=== PATIENT | male | born 1965 | race Caucasian/White ===

== ENCOUNTER 2016-09-02 07:00 | Day surgery (SDC) | payer OTHER ==
[~2016-09-02 07:00] MED LIST: Dextrose 5%-0.45% NaCl 1,000 ML IV SCH; Midazolam 1 MG/ML 2 ML SDV ONE; Sodium Chloride 0.9% 10 ML Syringe FLUSH PRN; fentaNYL 100 MCG/2 ML SDV ONE
[2016-09-02] MEDS ORDERED: fentaNYL 100 MCG/2 ML SDV IV ONE ×3 (07:54→10:05)
[2016-09-02] MEDS ORDERED: Midazolam 1 MG/ML 2 ML SDV IV ONE ×3 (07:55→10:05)
[2016-09-02 09:44] VITALS: BP 104/77
--- NOTE | 2016-09-02 13:28 | OR ---
DATE: 09/02/2016 PROCEDURES: 1. Esophagogastroduodenoscopy. 2. NBI. 3. Multiple pinch biopsies and brush biopsy. INSTRUMENT USED: GIF-H180 Olympus video panendoscope. PREMEDICATIONS: No oral topical anesthesia used. Fentanyl 100 mcg intravenous, Versed 2 mg intravenous. The procedure was done under pulse oximetry, BP recording, and cardiac surgeon. INDICATION: The patient with persistent abdominal pain and diarrhea unexplained and not responsive to medical measures. Esophagogastroduodenoscopy is performed for detection of any active erosive lesions, Ballard esophagus and/or malignancy also under consideration, H. pylori status to be determined, biopsies to be taken for celiac disease if indicated, endoscopic hemostasis therapy if needed. DESCRIPTION OF PROCEDURE: The scope was passed with ease. Adequate visualization of the esophagus was made from proximal to distal areas. No upper esophageal lesions identified. No distal esophageal stricture. No uphill or downhill esophageal varices. No Glenys-Guillory tear. No evidence of erosive esophagitis by Winston criteria. No esophageal polyp or tumor mass identified. Z-line was seen at around 40 cm distal to the oral verge, configuration consistent with grade 1 by ZAP classification. No proximal gastric varices noted. Gastric fundus examination by retroflexion showed no polypoid lesions. In the distal gastric body, multiple benign-appearing, 1 cm sized superficial ulcers were noted with blackish exudate around, photographs were taken, NBI views were obtained, multiple pinch biopsies, 6 in number were taken from different areas and sent for histopathology, brush biopsy was taken for cytology. No gastric vascular ectasia, polyp, or malignant mass identified. Duodenal bulb showed no ulcer. Visualized second part of the duodenum was unremarkable. Multiple pinch biopsies, 4 in number were taken from different areas of the second part of the duodenum, tissues were also obtained from the duodenal bulb from and 9 and 12 o'clock positions and sent for any histopathologic evidence of celiac disease. Multiple pinch biopsies were taken from the gastric antrum and proximal body and sent for PyloriTek test for H. pylori and histopathology. No bleeding was noted from any of the visualized areas at the completion of examination. IMPRESSION: Multiple gastric body ulcers. The patient tolerated the procedure well. [facility] /[id number]
== END 2016-09-05 10:20 | disposition home or self-care (01) ==
LOC: DL.ENDO 07:00
PROVIDERS: ATTEND Internal Medicine Gastroenterology
DX: K29.80 Duodenitis without bleeding (principal); K29.01 Acute gastritis with bleeding; K25.0 Acute gastric ulcer with hemorrhage; Z98.890 Other specified postprocedural states
CPT/HCPCS: 43239; 87077; J2250; J3010; J7042

== ENCOUNTER 2016-12-20 05:55 | Day surgery (SDC) | payer OTHER ==
[2016-12-20] MEDS ORDERED: Midazolam 1 MG/ML 2 ML SDV ONE (06:21)
[2016-12-20] MEDS ORDERED: fentaNYL 100 MCG/2 ML SDV ONE (06:22)
[2016-12-20] MEDS ORDERED: fentaNYL 100 MCG/2 ML SDV IV ONE ×2 (07:01→07:13)
[2016-12-20] MEDS ORDERED: Midazolam 1 MG/ML 2 ML SDV IV ONE ×3 (07:02→07:13)
[2016-12-20] MEDS ORDERED: Sodium Chloride 0.9% 10 ML Syringe FLUSH PRN (07:23)
[2016-12-20] MEDS ORDERED: Dextrose 5%-0.45% NaCl 1,000 ML IV SCH (07:30)
--- NOTE | 2016-12-20 09:17 | OR ---
DATE: 12/20/2016 PROCEDURE: Esophagogastroduodenoscopy, NBI, and multiple pinch biopsies. INSTRUMENT USED: GIF-H180 Olympus video panendoscope. PREMEDICATIONS: No oral topical anesthesia used. Fentanyl 100 mcg intravenous, Versed 3 mg intravenous. The procedure was done under pulse oximetry, BP recording, and electronic device monitor. INDICATION: The patient with abdominal pain and chronic diarrhea, previous gastric ulcers, treated. Esophagogastroduodenoscopy is performed for verification of total healing of gastric ulcers and rule out malignancy. Had a normal duodenal histopathology, repeat duodenal biopsies to be obtained for any evidence of celiac disease, endoscopic hemostasis therapy if needed. DESCRIPTION OF PROCEDURE: The scope was passed with ease. Adequate visualization of the esophagus was made from proximal to distal areas. No upper esophageal lesions identified. No distal esophageal stricture. No uphill or downhill esophageal varices. No Glenys-Guillory tear. No evidence of erosive esophagitis by [place] criteria. No esophageal polyp or tumor mass identified. Z-line was seen at around 40 cm distal to the oral verge, configuration consistent with grade 1 by ZAP classification. No esophageal polyp or tumor mass identified. Gastric fundus examination by retroflexion showed no polypoid lesions. No proximal gastric varices noted. No gastric ulcer, malignant mass, or vascular ectasia identified. Duodenal bulb showed no ulcer. Visualized second part of the duodenum was unremarkable. Multiple pinch biopsies 4 in number were taken from different areas of the second part of the duodenum, and tissues were also obtained from the duodenal bulb at 9 and 12 o'clock positions and sent for any histopathologic evidence of celiac disease. NBI views were obtained of the second part of the duodenum. No bleeding was noted from any of the visualized areas at the completion of examination. IMPRESSION: Normal study. The patient tolerated the procedure well. [facility] /[id number]
[2016-12-20 10:50] VITALS: BP 100/66
== END 2016-12-20 09:15 | disposition home or self-care (01) ==
LOC: DL.ENDO 05:55
PROVIDERS: ATTEND Internal Medicine Gastroenterology
DX: K52.9 Noninfective gastroenteritis and colitis, unspecified (principal); Q40.8 Other specified congenital malformations of upper alimentary tract; Z87.11 Personal history of peptic ulcer disease
CPT/HCPCS: 43239; J2250; J3010; J7042

== ENCOUNTER 2017-02-26 16:42 | Emergency (ER) | payer OTHER ==
[2017-02-26] MEDS ORDERED: Sodium Chloride 0.9% 10 ML Syringe FLUSH PRN (16:52)
[2017-02-26] MEDS ORDERED: Aspirin 81 MG Tab.Chew PO ONE (16:54)
--- NOTE | 2017-02-26 17:10 | EDM.PDOC ---
ED HPI GENERAL MEDICAL PROBLEM - General Chief Complaint: Chest Pain Stated Complaint: CHEST PAINS, [id number] Time Seen by Provider: 02/26/17 17:10 Source of Information: Reports: Patient, RN, RN Notes Reviewed History Limitations: Reports: No Limitations - History of Present Illness INITIAL COMMENTS - FREE TEXT/NARRATIVE: Patient presents to the ER with c/o a dull chest pain since yesterday. He states he had a physical yesterday in [place] but did not mention the chest pain at that time. He states he was told at that appointment that his cholesterol was significantly elevated. He states he has also been doctoring with Dr. Clark for stomach ulcers. He states he saw Dr. Clark today and did not mention the chest pain to him. He was taken off omeprazole today. Pt admits to recent sinus drainage and sore throat, denies fever, chills, sob, N/V/D. Onset: Gradual Onset Date: 02/25/17 Location: Reports: Chest Quality: Reports: Ache, Dull Severity: Moderate Improves with: Reports: None Worsens with: Reports: None - Related Data Allergies Allergy/AdvReac Type Severity Reaction Status Date / Time No Known Allergies Allergy Verified 12/20/16 06:07 Home Meds: Home Meds Multivitamin [Men's Multi-Vitamin] 1 tab PO DAILY 06/10/16 [History] Fexofenadine/Pseudoephedrine [Giulia-D 12 Hour] 1 tab PO ASDIRECTED PRN [History] Omeprazole 1 tab PO BID 12/19/16 [History] Past Medical History - Past Health History Medical/Surgical History: Denies Medical/Surgical History HEENT History: Reports: Impaired Vision, Other (See Below) Other HEENT History: WEARS CONTACT LENS Cardiovascular History: Reports: None Respiratory History: Reports: None Gastrointestinal History: Reports: Chronic Diarrhea, Irritable Bowel Syndrome, Other (See Below) Other Gastrointestinal History: gastric ulcers Genitourinary History: Reports: None APPLICATION CONSULTANT History: Reports: None Musculoskeletal History: Reports: Arthritis, Fracture Other Musculoskeletal History: HX OF R ANKLE FRACTURE Neurological History: Reports: None Psychiatric History: Reports: None Endocrine/Metabolic History: Reports: None Hematologic History: Reports: None Immunologic History: Reports: None Oncologic (Cancer) History: Reports: None Dermatologic History: Reports: None - Infectious Disease History Infectious Disease History: Reports: Chicken Pox - Past Surgical History Female Surgical History: Social & Family History - Family History Family Medical History: Noncontributory - Tobacco Use Smoking Status *Q: Never Smoker Second Hand Smoke Exposure: No - Caffeine Use Caffeine Use: Reports: Coffee Other Caffeine Use: DAILY AVERAGE 4 CUPS - Alcohol Use Number of Drinks Per Day: 3 - Recreational Drug Use Recreational Drug Use: No Drug Use in Last 12 Months: No - Living Situation & Occupation Occupation: Employed ED ROS GENERAL - Review of Systems Review Of Systems: ROS reveals no pertinent complaints other than HPI. ED EXAM, GENERAL - Physical Exam Exam: See Below Exam Limited By: No Limitations General Appearance: Alert, WD/WN, No Apparent Distress Eye Exam: Bilateral Eye: Normal Inspection, PERRL Ears: Normal External Exam, Normal Canal, Hearing Grossly Normal, Normal TMs Nose: Normal Inspection Throat/Mouth: Normal Inspection, Normal Lips (mild erythematous oropharynx), Normal Teeth, Normal Gums, Normal Voice, No Airway Compromise Head: Atraumatic, Normocephalic Neck: Normal Inspection, Supple, Non-Tender, Full Range of Motion Respiratory/Chest: No Respiratory Distress, Lungs Clear, Normal Breath Sounds, No Accessory Muscle Use, Chest Non-Tender Cardiovascular: Normal Peripheral Pulses, Regular Rate, Rhythm, No Edema, No Gallop, No JVD, No Murmur, No Rub Peripheral Pulses: 2+: Radial (L), Radial (R) GI/Abdominal: Normal Bowel Sounds, Soft, Non-Tender, No Organomegaly, No Distention, No Abnormal Bruit, No Mass (Male) Exam: Deferred Rectal (Males) Exam: Deferred Back Exam: Normal Inspection, Full Range of Motion Extremities: Normal Inspection, Normal Range of Motion, Non-Tender, No Pedal Edema, Normal Capillary Refill Neurological: Alert, Oriented, Normal Cognition, Normal Gait, No Motor/Sensory Deficits Psychiatric: Normal Affect, Normal Mood Skin Exam: Warm, Dry, Intact, Normal Color, No Rash Lymphatic: No Adenopathy EKG INTERPRETATION EKG Date: 02/26/17 Time: 16:54 Rhythm: NSR [place]: Normal P-Wave: Present QRS: Normal ST-T: Normal QT: Normal Comparison: NA - No Prior EKG Course - Vital Signs Last Recorded V/S: Last Vital Signs Temp 97.9 F 02/26/17 16:44 Pulse 85 02/26/17 16:44 Resp 18 02/26/17 16:44 BP 127/91 H 02/26/17 16:44 Pulse Ox 97 02/26/17 16:44 - Orders/Labs/Meds Orders: Active Orders 24 hr Category Date Time Status EKG Documentation Completion [RC] STAT Care 02/26/17 16:53 Active Peripheral IV Care [RC] . DIRECTED Care 02/26/17 16:53 Active Sodium Chloride 0.9% [Saline Flush] Med 02/26/17 16:52 Active 10 ml FLUSH ASDIRECTED PRN Peripheral IV Insertion Adult [OM.PC] Stat Oth 02/26/17 16:52 Ordered Medication Orders Sodium Chloride (Saline Flush) 10 ml FLUSH ASDIRECTED PRN PRN Reason: Keep Vein Open Last Admin: 02/26/17 17:35 Dose: 10 ml Labs: Laboratory Tests 02/26/17 02/26/17 02/26/17 Range/Units 17:08 17:08 17:24 WBC 8.2 (5.0-10.0) 10^3/uL RBC 4.61 (4.6-6.2) 10^6/uL Hgb 14.2 (14.0-18.0) g/dL Hct 42.6 (40.0-54.0) % MCV 92.4 (80-100) fL MCH 30.8 (27.0-34.0) pg MCHC 33.3 (33.0-35.0) g/dL Plt Count 275 (150-450) 10^3/uL Neut % (Auto) 60.5 (42.2-75.2) % Lymph % (Auto) 27.4 (20.5-50.1) % [place] % (Auto) 10.2 H (2-8) % Eos % (Auto) 1.7 (1.0-3.0) % Baso % (Auto) 0.2 (0.0-1.0) % Sodium 136 (135-145) mmol/L Potassium 4.0 (3.6-5.0) mmol/L Chloride 98 L (101-111) mmol/L Carbon Dioxide 27.0 (21.0-31.0) mmol/L Anion Gap 15.0 BUN 16 (7-18) mg/dL Creatinine 1.0 (0.6-1.3) mg/dL Est Cr Clr Drug Dosing 95.17 mL/min Estimated GFR (MDRD) > 60 BUN/Creatinine Ratio 16.00 Glucose 81 (74-105) mg/dL Calcium 9.7 (8.4-10.2) mg/dl Total Bilirubin 0.9 (0.2-1.0) mg/dL AST 26 (10-42) IU/L ALT 30 (10-60) IU/L Alkaline Phosphatase 79 (42-121) IU/L Troponin I < 0.02 (0.00-0.02) ng/ml Total Protein 7.8 (6.7-8.2) g/dl Albumin 4.5 (3.2-5.5) g/dl Globulin 3.3 Albumin/Globulin Ratio 1.36 Urine Color Yellow (YELLOW) Urine Appearance Clear (CLEAR) Urine pH 7.0 (5.0-9.0) Ur Specific [place] 1.015 (1.005-1.030) Urine Protein Negative (NEGATIVE) Urine Glucose (UA) Negative (NEGATIVE) Urine Ketones Negative (NEGATIVE) Urine Occult Blood Negative (NEGATIVE) Urine Nitrite Negative (NEGATIVE) Urine Bilirubin Negative (NEGATIVE) Urine Urobilinogen 0.2 (0.2-1.0) mg/dL Ur Leukocyte Esterase Negative (NEGATIVE) Urine RBC 0-5 /HPF Urine WBC Not seen (0-5/HPF) /HPF Ur Epithelial Cells Rare /HPF Urine Bacteria Not seen (0-FEW/HPF) /HPF Meds: Medications Generic Name Dose Route Start Last Admin Trade Name Freq PRN Reason Stop Dose Admin Sodium Chloride 10 ml 02/26/17 16:52 02/26/17 17:35 Saline Flush FLUSH 10 ml ASDIRECTED PRN Administration Keep Vein Open Discontinued Medications Generic Name Dose Route Start Last Admin Trade Name Freq PRN Reason Stop Dose Admin Al Hydroxide/Mg Hydroxide 30 ml 02/26/17 17:56 02/26/17 18:01 Gi Cocktail PO 02/26/17 17:57 30 ml ONETIME ONE Administration Aspirin 324 mg 02/26/17 16:54 02/26/17 17:14 Aspirin PO 02/26/17 16:55 324 mg ONETIME ONE Administration - Radiology Interpretation Free Text/Narrative:: Chest xray: no acute findings See rad report Departure - Departure Time of Disposition: 18:34 Disposition: Home, Self-Care 01 Condition: Good Clinical Impression: Non-cardiac chest pain, Costochondritis Instructions: Nonspecific Chest Pain, [id number], Costochondritis, Easy-to- Read Forms: ED Department Discharge Additional Instructions: Make an appointment to establish a primary care provider. Follow up with your primary care facility. Tylenol as directed for pain - My Orders Last 24 Hours: My Active Orders 02/26/17 16:52 Sodium Chloride 0.9% [Saline Flush] 10 ml FLUSH ASDIRECTED PRN Peripheral IV Insertion Adult [OM.PC] Stat 02/26/17 16:53 EKG Documentation Completion [RC] STAT Peripheral IV Care [RC] . DIRECTED - Assessment/Plan Last 24 Hours: My Active Orders 02/26/17 16:52 Sodium Chloride 0.9% [Saline Flush] 10 ml FLUSH ASDIRECTED PRN Peripheral IV Insertion Adult [OM.PC] Stat 02/26/17 16:53 EKG Documentation Completion [RC] STAT Peripheral IV Care [RC] . DIRECTED
[2017-02-26 17:11] VITALS: BP 127/91
[2017-02-26 17:39] LABS: CHLORIDE,CL 98 mmol/L (101-111); SODIUM,NA 136 mmol/L (135-145)
[2017-02-26] MEDS ORDERED: GI Cocktail Oral Solution 30 ML PO ONE (17:56)
--- NOTE | 2017-02-27 10:44 | EKG ---
02/26/2017- JAMAR CRUZ - EKG done on a 51-year-old male showing sinus rhythm, heart rate of 78 beats per minute. Normal intervals. Normal axis. No acute ST-T wave changes. [facility] /[id number]
== END 2017-02-26 18:52 | disposition home or self-care (01) ==
LOC: DL.ED 16:42
DX: M94.0 Chondrocostal junction syndrome [Tietze] (principal)
CPT/HCPCS: 36415; 71010; 80053; 81001; 84484; 85025; 93005; 99285; A9270; J7050

== ENCOUNTER 2020-01-21 15:52 | Emergency (ER) | payer OTHER ==
[2020-01-21 15:59] VITALS: BP 125/87; PULSE 97
[2020-01-21] MEDS ORDERED: Colchicine 0.6 MG Tab PO ONE (16:45)
[2020-01-21] MEDS ORDERED: methylPREDNISolone Sodium Succinate 125 MG/2 ML SDV IM ONE (16:45)
[2020-01-21 16:52] LABS: ANION GAP 12.2 mEq/L (7-13); CHLORIDE,CL 103 mmol/L (98-107); SODIUM,NA 139 mmol/L (136-145)
--- NOTE | 2020-01-21 17:03 | EDM.PDOC ---
Scribed by Lisset Calvin 01/21/20 [id number] for Dominic Acharya MD ED HPI GENERAL MEDICAL PROBLEM - General Chief Complaint: Skin Complaint Stated Complaint: RIGHT FOOT RED SWOLLEN, Time Seen by Provider: 01/21/20 15:56 Source of Information: Reports: Patient, RN, RN Notes Reviewed History Limitations: Reports: No Limitations - History of Present Illness INITIAL COMMENTS - FREE TEXT/NARRATIVE: Patient presents to ED stating that his right foot red and painful for 2 days. No injury. He rates the pain 9/10. He cannot stand to even touch it. No history of gout. Denies fever, chills, or swelling. Onset: Gradual Duration: Day(s): (2) Quality: Reports: Ache Severity: Severe Improves with: Reports: None Worsens with: Reports: Movement (or touch) Associated Symptoms: Reports: No Other Symptoms Right Foot Pain Score (Numeric/FACES): 8 - Related Data Allergies Allergy/AdvReac Type Severity Reaction Status Date / Time No Known Allergies Allergy Verified 01/21/20 16:00 Home Meds: Home Meds Multivitamin [Men's Multi-Vitamin] 1 tab PO DAILY 06/10/16 [History] Fexofenadine/Pseudoephedrine [Morris-D 12 Hour] 1 tab PO ASDIRECTED PRN 12/19/16 [History] Omeprazole 1 tab PO BID 12/19/16 [History] Past Medical History - Past Health History Medical/Surgical History: Denies Medical/Surgical History HEENT History: Reports: Impaired Vision, Other (See Below) Other HEENT History: WEARS CONTACT LENS Cardiovascular History: Reports: None Respiratory History: Reports: None Other Respiratory History: seasonal allergies, uses morris Gastrointestinal History: Reports: Chronic Diarrhea, Irritable Bowel Syndrome, Other (See Below) Other Gastrointestinal History: gastric ulcers Genitourinary History: Reports: None EMT BASIC History: Reports: None Musculoskeletal History: Reports: Arthritis, Fracture Other Musculoskeletal History: HX OF R ANKLE FRACTURE Neurological History: Reports: None Psychiatric History: Reports: None Endocrine/Metabolic History: Reports: None Hematologic History: Reports: None Immunologic History: Reports: None Oncologic (Cancer) History: Reports: None Dermatologic History: Reports: None - Infectious Disease History Infectious Disease History: Reports: Chicken Pox - Past Surgical History Female Surgical History: Social & Family History - Family History Family Medical History: Noncontributory - Caffeine Use Caffeine Use: Reports: Coffee Other Caffeine Use: DAILY AVERAGE 4 CUPS - Living Situation & Occupation Occupation: Employed ED ROS GENERAL - Review of Systems Review Of Systems: Comprehensive ROS is negative, except as noted in HPI. ED EXAM, SKIN/RASH Exam: See Below Exam Limited By: No Limitations General Appearance: Alert, WD/WN, No Apparent Distress Eye Exam: Bilateral Eye: Normal Inspection Throat/Mouth: Normal Voice, No Airway Compromise Head: Atraumatic, Normocephalic Neck: Normal Inspection Respiratory/Chest: No Respiratory Distress Cardiovascular: Normal Peripheral Pulses Neurological: Alert, Oriented, No Motor/Sensory Deficits Psychiatric: Normal Mood Skin: Warm, Dry, Increased Warmth (Right 1st toe and forefoot with erythema and hyperacute tenderness) Course - Vital Signs Last Recorded V/S: Last Vital Signs Temp 97.5 F 01/21/20 15:55 Pulse 97 01/21/20 15:55 Resp 18 01/21/20 15:55 BP 125/87 01/21/20 15:55 Pulse Ox 100 01/21/20 15:55 - Orders/Labs/Meds Labs: Laboratory Tests 01/21/20 01/21/20 Range/Units 16:12 16:12 WBC 9.4 (5.0-10.0) 10^3/uL RBC 4.21 L (4.6-6.2) 10^6/uL Hgb 13.3 L (14.0-18.0) g/dL Hct 39.7 L (40.0-54.0) % MCV 94.3 (80-100) fL MCH 31.6 (27.0-34.0) pg MCHC 33.5 (33.0-35.0) g/dL Plt Count 251 (150-450) 10^3/uL Neut % (Auto) 69.3 (42.2-75.2) % Lymph % (Auto) 21.5 (20.5-50.1) % [place] % (Auto) 7.4 (2-8) % Eos % (Auto) 1.6 (1.0-3.0) % Baso % (Auto) 0.2 (0.0-1.0) % Sodium 139 (136-145) mmol/L Potassium 4.2 (3.5-5.1) mmol/L Chloride 103 (98-107) mmol/L Carbon Dioxide 28 (21-32) mmol/L Anion Gap 12.2 (7-13) mEq/L BUN 11 (7-18) mg/dL Creatinine 1.26 (0.70-1.30) mg/dL Est Cr Clr Drug Dosing 73.04 mL/min Estimated GFR (MDRD) > 60 BUN/Creatinine Ratio 8.7 (No establ ref range) Glucose 86 (74-99) mg/dL Uric Acid 7.0 (3.5-7.2) mg/dL Calcium 8.7 (8.5-10.1) mg/dL Total Bilirubin 0.5 (0.2-1.0) mg/dL AST 23 (15-37) U/L ALT 24 (16-63) U/L Alkaline Phosphatase 89 (46-116) U/L C-Reactive Protein 0.2 (0.0-0.9) mg/dL Total Protein 7.8 (6.4-8.2) g/dL Albumin 3.7 (3.4-5.0) g/dL Globulin 4.1 Albumin/Globulin Ratio 0.9 Meds: Medications Discontinued Medications Generic Name Dose Route Start Last Admin Trade Name Freq PRN Reason Stop Dose Admin Colchicine 1.2 mg 01/21/20 16:45 01/21/20 16:53 Colcrys PO 01/21/20 16:46 1.2 mg ONETIME ONE Administration Methylprednisolone Sodium Succinate 125 mg 01/21/20 16:45 01/21/20 16:54 Solu-Medrol IM 01/21/20 16:46 125 mg ONETIME ONE Administration Departure - Departure Time of Disposition: 16:52 Disposition: Home, Self-Care 01 Condition: Good Clinical Impression: Gout of right foot Qualifiers: Gout etiology: idiopathic Chronicity: acute Qualified Code(s): M10.071 - Idiopathic gout, right ankle and foot - Discharge Information *PRESCRIPTION DRUG MONITORING PROGRAM REVIEWED*: No *COPY OF PRESCRIPTION DRUG MONITORING REPORT IN PATIENT JOSEP: No Instructions: Low-Purine Eating Plan Forms: ED Department Discharge Additional Instructions: Rx: [place] (Hydrocodone) *Do not drive while under the influence of this med ication. Use a stool softener if needed to prevent constipation while taking this medication. Rx: Prednisone 20mg Rx: Colchicine 0.6mg Hot packs or soaks for right foot as much as possible until pain resolves. Follow up in clinic next week for recheck. Sepsis Event Note (ED) - Focused Exam Vital Signs: Vital Signs Temp Pulse Resp BP Pulse Ox 01/21/20 15:55 97.5 F 97 18 125/87 100 I have read and agree with the documentation that has been completed regarding this visit. By signing this record, I attest that the documentation was completed in my physical presence and is an accurate record of the encounter.
== END 2020-01-21 17:09 | disposition home or self-care (01) ==
LOC: DL.ED 15:52
DX: M10.071 Idiopathic gout, right ankle and foot (principal)
CPT/HCPCS: 36415; 80053; 84550; 85025; 86140; 96372; 99283; A9270; J2930